=== PATIENT | female | born 1990 ===

== ENCOUNTER 2017-01-13 08:39 | Observation (INO) | payer OTHER ==
[2017-01-13] MEDS ORDERED: Sodium Chloride 0.9% 1,000 ML IV STA (08:58)
--- NOTE | 2017-01-13 09:04 | ED PDOC ---
HPI: Abdomen Time Seen by Provider: 01/13/17 08:52 Chief Complaint (Nursing): Abdominal Pain Chief Complaint (Provider): Abdominal Pain History Per: Patient History/Exam Limitations: no limitations Onset/Duration Of Symptoms: Days (x 2) Current Symptoms Are (Timing): Still Present Location Of Pain/Discomfort: RLQ Additional Complaint(s): Lisa is a 26 y/o female who was brought to the ED via EMS for complaints of lower abdominal pain associated with nausea and diarrhea, ongoing for 2 days. Denies dysuria. Patient states surgical history includes ectopic surgery, and s/p 4 months ago. LMP was November 2016. PMD: Unknown Past Medical History Reviewed: Historical Data, Nursing Documentation, Vital Signs Vital Signs: Last Vital Signs Temp 98.2 F 01/13/17 08:41 Pulse 70 01/13/17 08:41 Resp 20 01/13/17 08:41 BP 98/66 L 01/13/17 08:41 Pulse Ox 100 01/13/17 13:37 - Medical History PMH: No Chronic Diseases - Surgical History Surgical History: (4 months ago) Other surgeries: Surgery for ectopic - Family History Family History: States: Unknown Family Hx - Home Medications Home Medications: Ambulatory Orders Medication Instructions Recorded No Known Home Med 01/13/17 - Allergies Allergies/Adverse Reactions: Allergies Allergy/AdvReac Type Severity Reaction Status Date / Time No Known Allergies Allergy Verified 01/13/17 08:44 Review of Systems ROS Statement: Except As Marked, All Systems Reviewed And Found Negative Gastrointestinal: Positive for: Nausea, Abdominal Pain, Diarrhea Genitourinary Female: Negative for: Dysuria Physical Exam - Reviewed Nursing Documentation Reviewed: Yes Vital Signs Reviewed: Yes - Physical Exam Appears: Positive for: Non-toxic, No Acute Distress Head Exam: Positive for: ATRAUMATIC, NORMAL INSPECTION, NORMOCEPHALIC Skin: Positive for: Normal Color, Warm, Dry Eye Exam: Positive for: EOMI, Normal appearance, PERRL Neck: Positive for: Normal, Painless ROM, Supple Cardiovascular/Chest: Positive for: Regular Rate, Rhythm. Negative for: Murmur Respiratory: Positive for: Normal Breath Sounds. Negative for: Accessory Muscle Use, Respiratory Distress Gastrointestinal/Abdominal: Positive for: Soft, Tenderness (Tenderness to the right lower quadrant on palpation). Negative for: Guarding, Rebound Extremity: Positive for: Normal ROM. Negative for: Deformity Neurologic/Psych: Positive for: Alert, Oriented - Laboratory Results Result Diagrams: 01/13/17 09:47 01/13/17 09:47 - ECG O2 Sat by Pulse Oximetry: 100 (RA) Pulse Ox Interpretation: Normal Medical Decision Making Medical Decision Making: Time: 08:58 Initial Plan: --CMP --CBC --Urine test --Urine dipstick --NS IV 1000 ml at 100 mls/hr --Morphine 2 mg IV --Zofran 4 mg IV Time: 09:26 --Ordered beta-HCG and blood typing/screen --Pending Transvaginal US --beta HCG level at 494.79 mIU/mL Time: 11:46 Transvaginal US: Findings: The uterus measures approximately 8.8 x 6.9 x 4.4 cm. Anteverted. Cervix length measures approximately 4.1 cm. Small focal fluid within the endometrium representing either small fluid versus irregular gestational sac. If in fact this is a gestational sac it measures approximately 1.6 cm consistent with gestational age 6 weeks 0 days. There is no evidence of yolk sac or pole. Small to moderate pelvic free fluid. The right ovary measures 3.5 x 3.6 x 2.7 cm and contains complex cyst measuring approximately 2.2 x 2.5 x 1.6 cm. The left ovary measures 1.8 x 1.8 x 1.9 cm. Blood flow was demonstrated to both ovaries. Impression: Small focal fluid within the endometrium representing either small fluid versus irregular gestational sac. If in fact this is a gestational sac it measures approximately 1.6 cm consistent with gestational age 6 weeks 0 days. Please note that ectopic cannot be excluded by ultrasound alone. There is no evidence of yolk sac or pole. Correlate clinically including beta HCG, HIGH SCHOOL SOCIAL STUDIES TEACHER consultation, and follow-up ultrasound as indicated. Small to moderate pelvic free fluid. Time: 12:00 --Paged [facility] compressor station engineer chief, Dr. Shira Moralez, for consult Time: 13:30 --Patient evaluated by Dr. Kirt RAINES, most likely ectopic however he will consult with surgery to be available when patient goes to OR in the event that it is appendicitis Scribe Attestation: Documented by Tawana Nunes, acting as a scribe for Leeroy Umana MD Provider Scribe Attestation: All medical record entries made by the Scribe were at my direction and personally dictated by me. I have reviewed the chart and agree that the record accurately reflects my personal performance of the history, physical exam, medical decision making, and the department course for this patient. I have also personally directed, reviewed, and agree with the discharge instructions and disposition. Disposition - Clinical Impression Clinical Impression: Abdominal pain during - Patient ED Disposition Is Patient to be Admitted: Yes - Disposition Disposition Time: 13:30 Condition: FAIR Forms: [employer]oo ([employer]) - Pt Status Changed To: Hospital Disposition Of: Observation - POA Present On Arrival: None
[2017-01-13 09:54] LABS: BASO % 0.3 % (0.0-2.0); EOS # 0.3 K/uL (0.0-0.7); EOS % 3.2 % (0.0-4.0); HEMATOCRIT 34.2 % (34.0-47.0); LYMPH # 1.6 K/uL (1.0-4.3); LYMPH % 17.4 % (20.0-40.0); MEAN CELL VOLUME 91.4 fl (81.0-99.0); MEAN CORPUSCULAR HEMOGLOBIN 30.7 pg (27.0-31.0); MEAN CORPUSCULAR HGB CONC 33.6 g/dL (33.0-37.0); MEAN PLATELET VOLUME 8.6 fl (7.2-11.7); MONO # 0.3 K/uL (0.0-0.8); MONO % 3.3 % (0.0-10.0); NEUT # 7.2 K/uL (1.8-7.0); NEUT % 75.8 % (50.0-75.0); NRBC % 0.1 % (0.0-0.0); RED CELL DISTRIBUTION WIDTH 14.6 % (11.5-14.5); WHITE BLOOD COUNT 9.5 K/uL (4.8-10.8)
[2017-01-13 10:59] LABS: ALB/GLOB RATIO 1.3 (1.0-2.1); ALKALINE PHOSPHATASE 85 U/L (38-126); ALT/SGPT 43 U/L (9-52); AST/SGOT 22 U/L (14-36); BILIRUBIN,TOTAL 0.3 mg/dl (0.2-1.3); BLOOD UREA NITROGEN 11 mg/dl (7-17); CALCIUM 8.4 mg/dL (8.4-10.2); CARBON DIOXIDE 20 mmol/L (22-30); CHLORIDE 109 mmol/L (98-107); GFR AFRICAN-AMERICAN > 60; GLUCOSE,RANDOM 100 mg/dL (65-105); POTASSIUM 4.2 MMOL/L (3.6-5.0); SODIUM 137 mmol/l (132-148); TOTAL PROTEIN 7.1 G/DL (6.3-8.2)
--- NOTE | 2017-01-13 11:47 | US ---
Indication: Rule out ectopic Comparison: None available Technique: Transvaginal pelvic ultrasound Findings: The uterus measures approximately 8.8 x 6.9 x 4.4 cm. Anteverted. Cervix length measures approximately 4.1 cm. Small focal fluid within the endometrium representing either small fluid versus irregular gestational sac. If in fact this is a gestational sac it measures approximately 1.6 cm consistent with gestational age 6 weeks 0 days. There is no evidence of yolk sac or pole. Small to moderate pelvic free fluid. The right ovary measures 3.5 x 3.6 x 2.7 cm and contains complex cyst measuring approximately 2.2 x 2.5 x 1.6 cm. The left ovary measures 1.8 x 1.8 x 1.9 cm. Blood flow was demonstrated to both ovaries. Impression: Small focal fluid within the endometrium representing either small fluid versus irregular gestational sac. If in fact this is a gestational sac it measures approximately 1.6 cm consistent with gestational age 6 weeks 0 days. Please note that ectopic cannot be excluded by ultrasound alone. There is no evidence of yolk sac or pole. Correlate clinically including beta HCG, INSTRUCTOR EXTENSION WORK consultation, and follow-up ultrasound as indicated. Small to moderate pelvic free fluid.
[2017-01-13] MEDS ORDERED: Propofol 10 mg/ml Inj (20 ML) ONE (14:05)
[2017-01-13] MEDS ORDERED: Rocuronium 10 mg/ml (5 ml) ONE (14:05)
[2017-01-13] MEDS ORDERED: Succinylcholine 200 mg/10 ml Inj IV ONE (14:05)
[2017-01-13] MEDS ORDERED: Lidocaine 4% (Laryng-O-Jet) Kit MM ONE (14:05)
[2017-01-13] MEDS ORDERED: Dexamethasone 4 mg/1 ml ONE (14:08)
[2017-01-13] MEDS ORDERED: Phenylephrine 10 mg/ml Inj ONE (14:08)
[2017-01-13] MEDS ORDERED: Lidocaine 1% Inj (20ml) ONE (14:23)
[2017-01-13] MEDS ORDERED: Bupivacaine 0.5% Inj(30mL) ONE (14:23)
[2017-01-13] MEDS ORDERED: Lactated Ringer's 1,000 ML IV ONE (14:50)
[2017-01-13] MEDS ORDERED: Bupivacaine 0.5% 50 ML IJ ONE ×2 (15:07)
[2017-01-13] MEDS ORDERED: Morphine 1 mg/ml preservative-free Inj(Duramorph) ONE (15:19)
[2017-01-13] MEDS ORDERED: Neostigmine Methylsulfate 3mg/3ml Syringe IV ONE (15:24)
[2017-01-13] MEDS ORDERED: HYDROmorphone 0.5 mg/0.5 ml ISec IVP PRN (15:46)
[2017-01-13] MEDS ORDERED: Lactated Ringer's 1,000 ML IV SCH (15:46)
[2017-01-13 16:12] VITALS: RESP 18
--- NOTE | 2017-01-13 16:16 | CP.PCM.CON ---
History of Present Illness - History of Present Illness History of Present Illness: The patient is a 26-year-old 4 para [address] [facility] complaining of right lower quadrant pain for approximately 24 hour duration. Patient states the pain is stabbing in nature and nonradiating patient is taking a medication for the discomfort. Patient reports last menstrual period to be in the middle of November positive test in the emergency room patient denies any vaginal bleeding she reports nausea and abdominal pain and vomiting Review of Systems - Constitutional Constitutional: As Per HPI - Cardiovascular Cardiovascular: As Per HPI - Respiratory Respiratory: As Per HPI - Genitourinary Genitourinary: As Per HPI - Reproductive: Female Reproductive:Female: As Per HPI - Menstruation Menstruation: As Per HPI Past Patient History - Past Medical History & Family History Past Medical History?: No - Past Social History Smoking Status: Never Smoked - PSYCHIATRIC Hx Substance Use: No - SURGICAL HISTORY Other/Comment: ectopic -6 years ago - ANESTHESIA Hx Anesthesia: Yes Hx Anesthesia Reactions: No Hx Malignant Hyperthermia: No Meds Allergies/Adverse Reactions: Allergies Allergy/AdvReac Type Severity Reaction Status Date / Time No Known Allergies Allergy Verified 01/13/17 08:44 - Medications Medications: Current Medications Hydromorphone HCl (Dilaudid) 0.5 mg IVP Q10M PRN PRN Reason: Pain, moderate (4-7) Stop: 01/13/17 17:47 Sodium Chloride (Sodium Chloride 0.9%) 1,000 mls @ 100 mls/hr IV .Q10H STA Stop: 01/13/17 18:57 Last Admin: 01/13/17 09:42 Dose: 100 mls/hr Lactated Ringer's (Lactated Ringer's) 1,000 mls @ 100 mls/hr IV .Q10H DAVID Ondansetron HCl (Zofran Inj) 4 mg IVP ONCE PRN PRN Reason: Nausea/Vomiting Stop: 01/13/17 17:47 Physical Exam - Constitutional Additional comments: Patient appears to be in considerable discomfort - Head Exam Head Exam: ATRAUMATIC - Eye Exam Eye Exam: Normal appearance - ENT Exam ENT Exam: Mucous Membranes Moist - Respiratory Exam Respiratory Exam: Clear to Auscultation Bilateral - Cardiovascular Exam Cardiovascular Exam: REGULAR RHYTHM - GI/Abdominal Exam GI & Abdominal Exam: Normal Bowel Sounds Additional comments: Abdomen guarding and positive rebound Results - Vital Signs Recent Vital Signs: Last Vital Signs Temp 98.4 F 01/13/17 15:44 Pulse 80 01/13/17 16:00 Resp 18 01/13/17 16:00 BP 110/77 01/13/17 16:00 Pulse Ox 100 01/13/17 16:00 - Labs Result Diagrams: 01/13/17 09:47 01/13/17 09:47 Assessment & Plan - Assessment and Plan (Free Text) Assessment: 26-year-old female history of previous ectopic presents for right lower quadrant pain and positive test fluid in the pelvis on ultrasound. We discussed laboratory and imaging studies with the patient we discussed medical and surgical management of ectopic patient was given the opportunity ask questions and discussed risks benefits and alternatives to each method of therapy after our discussion the patient out for operative laparoscopy. Patient agreed to surgical management
[2017-01-13] MEDS ORDERED: Oxycodone/Acetaminophen 5/325 mg Tab PO ONE (16:43)
[2017-01-13 18:44] VITALS: BP 97/57; PULSE 72; TEMP 98.2; O2SAT 97
--- NOTE | 2017-01-13 22:21 | OP ---
DATE: 01/13/2017 PREOPERATIVE DIAGNOSIS: Right ectopic . POSTOPERATIVE DIAGNOSIS: Right ectopic . OPERATION PERFORMED: Operative laparoscopy, right fimbriectomy. SURGEON: Dr. Latoya Moralez. SOCIAL MEDIA CONTENT MANAGER: Rea Woods. ESTIMATED BLOOD LOSS: 100 mL. ANESTHESIA: General. ANESTHESIA ADMINISTERED BY: Dr. Meredith. URINE OUTPUT: Talamantes catheter put out approximately 60 mL of clear urine. Patient received approximately 700 mL of D5 OR intraoperatively. COMMENTS: Patient had a previous right ectopic . Upon entering the abdomen, the ectopic was noted in the fimbrial portion of the right side, photomicrograph was taken for documentation. Rea Franco was the shipping assistant of the procedure. She was instrumental in the care of the patient. She helped to create exposure, obtain hemostasis and was helpful in closure of the patient. The procedure would not have been possible without her assistance. DESCRIPTION OF PROCEDURE: After informed consent was obtained, the patient was taken to the operating room where she was given general anesthesia, she was then prepped and draped in the usual sterile fashion. She was placed in a modified lithotomy position. A weighted speculum was then inserted into the vagina, cervix was visualized, grasped with a single-toothed tenaculum. The cervix was then gently dilated and a Humi uterine manipulator was inserted to manipulate the uterus. Talamantes catheter was inserted to the bladder to monitor the patient's urinary output. Attention was then turned to the umbilical fold, where a 5 mm incision was made after the infusion of Marcaine. The abdomen was then tented upward and a Veress needle was inserted into the abdominal cavity. Placement was confirmed with a fluid-filled syringe. The abdomen was insufflated to 15 mmHg. The Veress needle was then removed and 5 mm trocar was introduced into the abdominal cavity and placement was confirmed with the laparoscope. The abdomen was then surveyed. Hemoperitoneum was identified, approximately 100-150 mL of blood was noted. There was a right ectopic which was visualized in the fimbrial portion. The other portion of the tube was removed during the previous surgery. Pictures were taken for documentation. Attention was then turned to the left lower quadrant, where Marcaine was infused, approximately 2 cm superior to the anterior iliac crest. A 5 mm incision was made and a 5 mm port was introduced under direct visualization. Attention was then turned to the left side approximately 3 cm superior to the anterior iliac crest. Marcaine was infused. A 10 mm port was inserted into the abdominal cavity. Grasper was then inserted. The fimbrial portion was elevated and excised using the LigaSure device. The specimen was bagged and removed through the 10 mm port site. All instruments were then removed from the abdomen. The 10 mm site was closed with 0 Vicryl and the 5 mm sites were closed with Dermabond. All sponge, lap, needle, and instrument counts were correct x2, and the patient was taken to the recovery room in awake and stable condition. Shira Moralez MD
== END 2017-01-13 19:39 | disposition home or self-care (01) ==
LOC: H.ER 08:39 → EDBD 08:39 → H.ERHOLD 13:33
PROVIDERS: ADMIT Obstetrics & Gynecology Gynecology; ATTEND Obstetrics & Gynecology Gynecology
DX: O00.10 Tubal pregnancy without intrauterine pregnancy (principal); Z3A.01 Less than 8 weeks gestation of pregnancy
CPT/HCPCS: 58700; 76817; 80053; 81025; 84702; 85025; 86850; 86900; 88305; 96374; 96375; 99283; G0378; J0330; J0690; J1100; J1170; J1885; J2001; J2270; J2370; J2405; J2704; J2710; J2765; J3010; J7030; J7040; J7120